=== PATIENT | female | born 1975 | race Caucasian/White ===

== ENCOUNTER → 2019-02-27 | Outpatient (CLI) | payer OTHER ==
[~2019-02-27] MED LIST: CAMILA0.35 MG PO; DELTASONE20 MG PO; HYDROXYZINE HCL25 M1 PO; LEVSIN0.125 MG PO; NORCO 5-325 TA1 EACH PO; PERCOCET 5-3251 EACH PO; PREMARIN0.3 MG
== END ==
LOC: M.RAD 12:36
DX: Z12.31 Encounter for screening mammogram for malignant neoplasm of breast (principal)